=== PATIENT | female | born 1995 | race Caucasian/White ===

== ENCOUNTER 2018-09-04 16:29 | Inpatient (IN) ==
[~2018-09-04 16:29] MED LIST: AMIDATE ONE; QUELICIN ONE
[2018-09-04] MEDS ORDERED: ATIVAN IV ONE (16:39)
--- NOTE | 2018-09-04 16:43 | Diag Imaging Result Doc PS360 ---
EXAM: CHEST-1 VIEW 09/04/2018 HISTORY: INTUBATION TECHNIQUE: AP portable chest at 1645 COMMENT: There is considerable motion artifact. There is no visible endotracheal tube. There is no definite abnormality. The heart size is within normal limits. IMPRESSION: Technically suboptimal radiograph. No gross abnormality. Electronically signed by Taj Zaragoza 09/04/2018 4:41 PM
[2018-09-04 16:44] LABS: BE -4.8 mmoll (-3.0-3.0); BLOOD TYPE ARTERIAL; HCO3-(ACT) 21.2 mmoll (20.0-26.0); METHB 1.4 % (0.0-1.5); O2(CT) 17.7 mL/dL (15.0-23.0); O2HB 96.8 % (95.0-99.0); PCO2(98.6) 44 mmHg (35-45); PO2(98.6) 230 mmHg (60-100); SAMPLE BLOOD; THB 12.6 g/dL (11.5-17.4)
[2018-09-04 16:47] LABS: MODALITY VENTIMASK
[2018-09-04 16:48] LABS: ALLEN TEST NO
[2018-09-04] MEDS ORDERED: SODIUM BICARBONATE 8.4% IV ONE (16:55)
[2018-09-04 17:03] LABS: AGAP 18; ALKALINE PHOSPHATASE 79 U/L (32-104); BUN 11 mg/dL (8-22); CALCIUM 8.6 mg/dL (8.8-10.2); CHLORIDE 103 mmol/L (98-107); COSMO 277; CREATININE 0.8 mg/dL (0.5-0.9); ESTIMATED GFR > 60; GLUCOSE 169 mg/dL (70-104); GOT 25 U/L (10-30); GPT 23 U/L (10-36); POTASSIUM 4.5 mmol/L (3.5-5.1); SODIUM 137 mmol/L (136-145); TCO2 16 mmol/L (25-35); TOTAL PROTEIN 6.4 g/dL (6.3-8.3)
[2018-09-04 17:10] LABS: BASO# 0.03 X1000 (0.0-0.2); BASO% 0.5 % (0.0-0.8); EOS# 0.17 X1000 (0.0-0.7); EOS% 2.8 % (0.0-10.0); HEMATOCRIT 36.6 % (37.0-47.0); HEMOGLOBIN 12.1 g/dL (12.0-16.0); IMM GRAN# 0.05 X1000 (0.0-0.04); IMM GRAN% 0.8 % (0.0-0.5); LYMPH# 2.61 X1000 (1.2-3.4); LYMPH% 43.6 % (20.5-51.1); MCH 31.8 PG (27-31); MCHC 33.1 g/dL (33-37); MCV 96.3 FL (81-99); MONO# 0.17 X1000 (0.11-0.59); MONO% 2.8 % (1.7-9.3); MPV 9.5 FL (7.4-10.4); NEUT# 2.96 X1000 (1.4-6.5); NEUT% 49.5 % (42.2-75.2); PLT 280 X1000 (130-400); RDW 13.4 % (11.5-14.5); WBC 5.99 X1000 (4.8-10.8)
[2018-09-04 17:37] LABS: COLOR YELLOW; URINE RBC 20-40 /HPF (<10); URINE SOURCE CLEAN CATCH
[2018-09-04 17:38] LABS: BILIRUBIN URINE NEGATIVE (NEGATIVE); BLOOD URINE 3+ (NEGATIVE); CLARITY SLIGHTLY HAZY (CLEAR); GLUCOSE URINE NEGATIVE (NEGATIVE); KETONE URINE 1+(Small) mg/dL (NEGATIVE); LEUKOCYTES URINE NEGATIVE (NEGATIVE); NITRITE URINE NEGATIVE (NEGATIVE); UROBILINOGEN URINE NORMAL
[2018-09-04 18:10] LABS: UR AMPHETAMINES QUAL PRESUMPTIVE POSITIVE (NONE DETECT); UR BARBITUATES QUAL NONE DETECTED (NONE DETECT); UR BENZODIAZEPIN QUAL NONE DETECTED (NONE DETECT); UR CANNABINOIDS QUAL PRESUMPTIVE POSITIVE (NONE DETECT); UR COCAINE QUAL NONE DETECTED (NONE DETECT); UR METHADONE QUAL NONE DETECTED (NONE DETECT); UR METHAMPHETAMINE QUAL NONE DETECTED (NONE DETECT); UR OPIATES QUAL NONE DETECTED (NONE DETECT); UR OXYCODONE QUAL NONE DETECTED (NONE DETECT); UR PCP QUAL NONE DETECTED (NONE DETECT); UR PROPOXYPHENE QUAL NONE DETECTED (NONE DETECT); UR TCA QUAL NONE DETECTED (NONE DETECT)
[2018-09-04] MEDS ORDERED: LR 2,000 ML IV ONE (18:12)
[2018-09-04 18:35] LABS: INR 0.93; PROTIME 12.9 Seconds (11.0-16.0)
[2018-09-04 18:36] LABS: PTT 25.2 Seconds (22.3-41.8)
[2018-09-04] MEDS ORDERED: ZOFRAN IV PRN (18:44)
[2018-09-04] MEDS ORDERED: ATIVAN IV PRN ×2 (18:47→18:56)
[2018-09-04] MEDS ORDERED: SODIUM CHLORIDE 0.9% INJ SCH (19:00)
[2018-09-04] MEDS ORDERED: PROTONIX IV SCH (19:00)
--- NOTE | 2018-09-04 19:08 | PROVIDER DOCUMENTATION ---
This chart was entered by Halima Porter Scribe, acting as scribe for Fran Luu MD. HPI-Critical Care - General Chief Complaint: Unresponsive Stated Complaint: Unresponsive/Seizures Time Seen by Provider: 09/04/18 16:19 Patient arrived via EMS?: Yes Source: EMS Allergies/Adverse Reactions: Allergies Allergy/AdvReac Type Severity Reaction Status Date / Time Unable to Assess Allergy Verified 09/04/18 16:10 Home Medications: Home Medication List Medication Instructions Recorded Confirmed Last Taken Type Unobtainable [Home Meds 09/04/18 09/04/18 Unknown History Unobtainable] - History of Present Illness-Critical Care Nature of Presenting Problem: 23yof presents to ED by EMS cc per EMS un responsive and multiple seizures that last 1 1/2 minutes and then start again about 2 minutes later. EMS reports pt had a miscarriage 2 weeks ago and has had no vaginal bleeding for last 4 days. Pt is unresponsive to verbal , responsive to pain and has unpurposeful movement. Pt has hx of HTN and anxiety. Upon exam Afebrile, no needle tracks, blood pressure is 110/83, blood sugar is 231 and heart rate is 138. Review of Systems - Adult - REVIEW OF SYSTEMS - ADULT ROS:: unobtainable per condition Constitutional: reports: no symptoms reported Eyes: reports: no symptoms reported Ears, Nose, Mouth & Throat: reports: no symptoms reported Cardiovascular: reports: no symptoms reported Respiratory: reports: no symptoms reported Gastrointestinal: reports: no symptoms reported Genitourinary: reports: no symptoms reported Musculoskeletal: reports: no symptoms reported Integumentary: reports: no symptoms reported Neurological: reports: no symptoms reported Psychiatric: reports: no symptoms reported Endocrine: reports: no symptoms reported Hematologic/Lymphatic: reports: no symptoms reported Allergic/Immunologic: reports: no symptoms reported All Other Systems: Reviewed and Negative Past History - Adult - PAST MEDICAL HISTORY-ADULT Review of Records: reports: Nursing Assessment Review, Medications Reviewed, Social history reviewed & non-contributory. Major Childhood Illnesses: reports: denies history Cardiovascular: reports: denies history Respiratory: reports: denies history Gastrointestinal: reports: denies history Obstetrical/Gynecological: reports: denies history Genitourinary: reports: denies history Musculoskeletal: reports: denies history Neurological: reports: denies history Endocrine/Immune: reports: denies history Other Conditions: reports: denies history - IMMUNIZATION STATUS Childhood Immunizations: See Nurse Assessment Flu Vaccine: See Nurse Assessment - FAMILY HISTORY Family History: reviewed, not pertinent Physical Exam-General - PHYSICAL EXAM-ADULT Initial Vital Signs Reviewed: Yes - CONSTITUTIONAL General Appearance: other (unpurposeful movement) - EYES Eyes: other (pupils dilated 1cm, equal but unresponsive) - RESPIRATORY Respiratory: lungs clear, normal breath sounds, other (sounds congested only when she coughs). negative: crackles, rales, rhonchi - CARDIOVASCULAR Cardiovascular: tachycardia. negative: regular rate, rhythm, bradycardia - GASTROINTESTINAL (ABDOMEN) Abdominal Exam: normal bowel sounds, non tender, soft. negative: rigid, rebound, tenderness - LYMPHATIC Lymphatic: no adenopathy. negative: striations - SKIN Integumentary: normal color, warm/dry. negative: jaundice Progress - PLAN OF CARE/RESULTS Progress/Plan/Lab Results: Vital Signs - 8 hr 09/04/18 16:00 09/04/18 16:15 09/04/18 16:25 Temperature 97 F L Pulse Rate 133 H Respiratory Rate 18 Blood Pressure 110/83 O2 Sat by Pulse Oximetry 93 L 92 L 98 09/04/18 18:00 Temperature Pulse Rate 136 H Respiratory Rate 26 H Blood Pressure 115/76 O2 Sat by Pulse Oximetry 98 Laboratory Results - last 24 hr 09/04/18 09/04/18 09/04/18 16:09 16:09 16:09 WBC 5.99 RBC 3.80 L Hgb 12.1 Hct 36.6 L MCV 96.3 MCH 31.8 H MCHC 33.1 RDW Std Deviation 13.4 Plt Count 280 MPV 9.5 Immature Gran % (Auto) 0.8 H Neut % (Auto) 49.5 Lymph % (Auto) 43.6 Collier % (Auto) 2.8 Eos % (Auto) 2.8 Baso % (Auto) 0.5 Immature Gran # (Auto) 0.05 H Neut # (Auto) 2.96 Lymph # (Auto) 2.61 Collier # (Auto) 0.17 Eos # (Auto) 0.17 Baso # (Auto) 0.03 PT INR PTT (Actin FS) Specimen Type Sample Site pH pCO2 pO2 HCO3 Base Excess Oxyhemoglobin ABG O2 Sat (Calculated) ABG O2 Saturation ABG Carboxyhemoglobin ABG Methemoglobin Hiram Test A-a O2 Difference Total Hemoglobin Lactate Liter Flow Blood Gas Modality FiO2 % Sodium 137 Potassium 4.5 Chloride 103 Carbon Dioxide 16 L Anion Gap 18 BUN 11 Creatinine 0.8 Estimated GFR/1.73 m2 > 60 BUN/Creatinine Ratio 14 Glucose 169 H POC Glucose Calculated Osmolality 277 Calcium 8.6 L Magnesium 1.9 Total Bilirubin 0.20 AST 25 ALT 23 Alkaline Phosphatase 79 Troponin T Total Protein 6.4 Albumin 4.0 Globulin 2.0 Albumin/Globulin Ratio 2.0 Plasma Lactate Free T4 Urine Source Urine Color Urine Clarity Urine pH Ur Specific [place] Urine Protein Urine Ketones Urine Blood Urine Nitrite Urine Bilirubin Urine Urobilinogen Urine Microscopic RBC Urine WBC Urine Glucose Urine Test Urine Opiates Screen Ur Oxycodone Screen Urine Methadone Screen U Propoxyphene Qual Acetaminophen Ur Barbituates Screen Ur Tricyclics Screen Ur Phencyclidine Scrn Ur Amphetamines Screen U Methamphetamines Scrn U Benzodiazepines Scrn Urine Cocaine Screen U Cannabinoids Screen Acetone Level 09/04/18 09/04/18 09/04/18 16:09 16:09 16:09 WBC RBC Hgb Hct MCV MCH MCHC RDW Std Deviation Plt Count MPV Immature Gran % (Auto) Neut % (Auto) Lymph % (Auto) Collier % (Auto) Eos % (Auto) Baso % (Auto) Immature Gran # (Auto) Neut # (Auto) Lymph # (Auto) Collier # (Auto) Eos # (Auto) Baso # (Auto) PT INR PTT (Actin FS) Specimen Type Sample Site pH pCO2 pO2 HCO3 Base Excess Oxyhemoglobin ABG O2 Sat (Calculated) ABG O2 Saturation ABG Carboxyhemoglobin ABG Methemoglobin Hiram Test A-a O2 Difference Total Hemoglobin Lactate Liter Flow Blood Gas Modality FiO2 % Sodium Potassium Chloride Carbon Dioxide Anion Gap BUN Creatinine Estimated GFR/1.73 m2 BUN/Creatinine Ratio Glucose POC Glucose Calculated Osmolality Calcium Magnesium Total Bilirubin AST ALT Alkaline Phosphatase Troponin T < 0.010 Total Protein Albumin Globulin Albumin/Globulin Ratio Plasma Lactate Free T4 0.75 L Urine Source Urine Color Urine Clarity Urine pH Ur Specific [place] Urine Protein Urine Ketones Urine Blood Urine Nitrite Urine Bilirubin Urine Urobilinogen Urine Microscopic RBC Urine WBC Urine Glucose Urine Test Urine Opiates Screen Ur Oxycodone Screen Urine Methadone Screen U Propoxyphene Qual Acetaminophen Ur Barbituates Screen Ur Tricyclics Screen Ur Phencyclidine Scrn Ur Amphetamines Screen U Methamphetamines Scrn U Benzodiazepines Scrn Urine Cocaine Screen U Cannabinoids Screen Acetone Level NEGATIVE 09/04/18 09/04/18 09/04/18 16:09 16:09 16:09 WBC RBC Hgb Hct MCV MCH MCHC RDW Std Deviation Plt Count MPV Immature Gran % (Auto) Neut % (Auto) Lymph % (Auto) Collier % (Auto) Eos % (Auto) Baso % (Auto) Immature Gran # (Auto) Neut # (Auto) Lymph # (Auto) [place]lier # (Auto) Eos # (Auto) Baso # (Auto) PT INR PTT (Actin FS) Specimen Type Sample Site pH pCO2 pO2 HCO3 Base Excess Oxyhemoglobin ABG O2 Sat (Calculated) ABG O2 Saturation ABG Carboxyhemoglobin ABG Methemoglobin Hiram Test A-a O2 Difference Total Hemoglobin Lactate Liter Flow Blood Gas Modality FiO2 % Sodium Potassium Chloride Carbon Dioxide Anion Gap BUN Creatinine Estimated GFR/1.73 m2 BUN/Creatinine Ratio Glucose POC Glucose Calculated Osmolality Calcium Magnesium Total Bilirubin AST ALT Alkaline Phosphatase Troponin T Total Protein Albumin Globulin Albumin/Globulin Ratio Plasma Lactate Free T4 Urine Source Urine Color Urine Clarity Urine pH Ur Specific [place] Urine Protein Urine Ketones Urine Blood Urine Nitrite Urine Bilirubin Urine Urobilinogen Urine Microscopic RBC Urine WBC Urine Glucose Urine Test NEGATIVE Urine Opiates Screen NONE DETECTED Ur Oxycodone Screen NONE DETECTED Urine Methadone Screen NONE DETECTED U Propoxyphene Qual NONE DETECTED Acetaminophen < 1.2 L Ur Barbituates Screen NONE DETECTED Ur Tricyclics Screen NONE DETECTED Ur Phencyclidine Scrn NONE DETECTED Ur Amphetamines Screen PRESUMPTIVE POSITIVE A U Methamphetamines Scrn NONE DETECTED U Benzodiazepines Scrn NONE DETECTED Urine Cocaine Screen NONE DETECTED U Cannabinoids Screen PRESUMPTIVE POSITIVE A Acetone Level 09/04/18 09/04/18 09/04/18 16:09 16:09 16:25 WBC RBC Hgb Hct MCV MCH MCHC RDW Std Deviation Plt Count MPV Immature Gran % (Auto) Neut % (Auto) Lymph % (Auto) [place] % (Auto) Eos % (Auto) Baso % (Auto) Immature Gran # (Auto) Neut # (Auto) Lymph # (Auto) [place] # (Auto) Eos # (Auto) Baso # (Auto) PT 12.9 INR 0.93 PTT (Actin FS) 25.2 Specimen Type Sample Site pH pCO2 pO2 HCO3 Base Excess Oxyhemoglobin ABG O2 Sat (Calculated) ABG O2 Saturation ABG Carboxyhemoglobin ABG Methemoglobin Hiram Test A-a O2 Difference Total Hemoglobin Lactate Liter Flow Blood Gas Modality FiO2 % Sodium Potassium Chloride Carbon Dioxide Anion Gap BUN Creatinine Estimated GFR/1.73 m2 BUN/Creatinine Ratio Glucose POC Glucose Calculated Osmolality Calcium Magnesium Total Bilirubin AST ALT Alkaline Phosphatase Troponin T Total Protein Albumin Globulin Albumin/Globulin Ratio Plasma Lactate 5.4 H Free T4 Urine Source CLEAN CATCH Urine Color YELLOW Urine Clarity SLIGHTLY HAZY A Urine pH 5.0 Ur Specific [place] 1.030 Urine Protein 3+(500 mg/dL) A Urine Ketones 1+(Small) A Urine Blood 3+ A Urine Nitrite NEGATIVE Urine Bilirubin NEGATIVE Urine Urobilinogen NORMAL Urine Microscopic RBC 20-40 A Urine WBC NEGATIVE Urine Glucose NEGATIVE Urine Test Urine Opiates Screen Ur Oxycodone Screen Urine Methadone Screen U Propoxyphene Qual Acetaminophen Ur Barbituates Screen Ur Tricyclics Screen Ur Phencyclidine Scrn Ur Amphetamines Screen U Methamphetamines Scrn U Benzodiazepines Scrn Urine Cocaine Screen U Cannabinoids Screen Acetone Level 09/04/18 09/04/18 16:27 16:28 WBC RBC Hgb Hct MCV MCH MCHC RDW Std Deviation Plt Count MPV Immature Gran % (Auto) Neut % (Auto) Lymph % (Auto) [place] % (Auto) Eos % (Auto) Baso % (Auto) Immature Gran # (Auto) Neut # (Auto) Lymph # (Auto) Collier # (Auto) Eos # (Auto) Baso # (Auto) PT INR PTT (Actin FS) Specimen Type ARTERIAL Sample Site L BRACHIAL pH 7.30 L pCO2 44 pO2 230 H HCO3 21.2 Base Excess -4.8 L Oxyhemoglobin 96.8 ABG O2 Sat (Calculated) 17.7 ABG O2 Saturation 100.0 ABG Carboxyhemoglobin 1.80 ABG Methemoglobin 1.4 Hiram Test NO A-a O2 Difference 72.0 Total Hemoglobin 12.6 Lactate 3.30 H Liter Flow 15.0 Blood Gas Modality VENT[place] FiO2 % 50.0 Sodium Potassium Chloride Carbon Dioxide Anion Gap BUN Creatinine Estimated GFR/1.73 m2 BUN/Creatinine Ratio Glucose POC Glucose 142 H Calculated Osmolality Calcium Magnesium Total Bilirubin AST ALT Alkaline Phosphatase Troponin T Total Protein Albumin Globulin Albumin/Globulin Ratio Plasma Lactate Free T4 Urine Source Urine Color Urine Clarity Urine pH Ur Specific [place] Urine Protein Urine Ketones Urine Blood Urine Nitrite Urine Bilirubin Urine Urobilinogen Urine Microscopic RBC Urine WBC Urine Glucose Urine Test Urine Opiates Screen Ur Oxycodone Screen Urine Methadone Screen U Propoxyphene Qual Acetaminophen Ur Barbituates Screen Ur Tricyclics Screen Ur Phencyclidine Scrn Ur Amphetamines Screen U Methamphetamines Scrn U Benzodiazepines Scrn Urine Cocaine Screen U Cannabinoids Screen Acetone Level Orders Category Date Time Status Admit - [facility] Routine AdmDCTranf 09/04/18 18:45 Active Activity - Strict Bedrest ORDERED Care 09/04/18 18:44 Active Cardiac Monitoring DIRECTED Care 09/04/18 16:31 Active IV Insertion ORDERED Care 09/04/18 18:08 Completed Intake and Output-Strict ORDERED Care 09/04/18 18:45 Active Neurological Check ORDERED Care 09/04/18 18:47 Active Notify MD of + Sepsis Screen NOW Care 09/04/18 18:08 Active Notify Physician As Ordered Care 09/04/18 18:08 Active Saline Loc NOW Care 09/04/18 16:31 Active Vital Signs Order Q1H Care 09/04/18 18:45 Active Z-Document. for Tele Applied ORDERED Care 09/04/18 18:45 Active NPO Diet 09/04/18 18:[address] HEAD W/O CONTRAST [CT] Stat Exams 09/04/18 17:48 Ordered cxr [CHEST-1 VIEW] [RAD] Stat Exams 09/04/18 16:07 Completed ABG [RESP] Routine Lab 09/04/18 16:28 Completed ACETAMINOPHEN [TDM] Stat Lab 09/04/18 16:09 Completed ACETONE SERUM [CHEM] Stat Lab 09/04/18 16:09 Completed BLOOD CULTURE [BLDCUL] Stat Lab 09/04/18 16:25 Ordered CBC WITH DIFF [HEME] Routine Lab 09/05/18 06:00 Ordered CBC WITH ELECTRONIC DIFF [HEME] Stat Lab 09/04/18 16:09 Completed CK PROFILE [SP CHEM] Stat Lab 09/04/18 18:09 Ordered COMPREHENSIVE METABOLIC PANEL [CHEM] Routine Lab 09/05/18 06:00 Uncollected COMPREHENSIVE METABOLIC PANEL [CHEM] Stat Lab 09/04/18 16:09 Completed FREE T4 Stat Lab 09/04/18 16:09 Completed LACTATE, PLASMA [CHEM] Q3H Lab 09/04/18 19:25 Ordered LACTATE, PLASMA [CHEM] Stat Lab 09/04/18 16:25 Completed MAGNESIUM [CHEM] Stat Lab 09/04/18 16:09 Completed TEST-URINE [PREG] Stat Lab 09/04/18 16:09 Completed PROTIME WITH INR [COAG] Stat Lab 09/04/18 16:09 Completed PTT [COAG] Stat Lab 09/04/18 16:09 Completed TROPONIN T Stat Lab 09/04/18 16:09 Completed TROPONIN T Stat Lab 09/04/18 18:[address] W/POSS RFLX CULT [URINALYSIS] Stat Lab 09/04/18 16:09 Completed URINE CULTURE [RM] Routine Lab 09/04/18 18:57 Ordered URINE DRUG SCREEN PL Stat Lab 09/04/18 16:09 Completed Etomidate [Amidate] Med 09/04/18 15:57 Discontinued 20 mg .ROUTE .STK-MED ONE Lactated Ringers Inj [Lr] 2,000 ml Med 09/04/18 18:12 Active IV 999 mls/hr Lorazepam [Ativan] Med 09/04/18 16:39 Discontinued 1 mg IV NOW ONE Lorazepam [Ativan] Med 09/04/18 18:56 Active 1 mg IV Q2H PRN PRN Lorazepam [Ativan] Med 09/04/18 18:47 Discontinued 1 mg IV Q4H PRN PRN Ondansetron [Zofran] Med 09/04/18 18:44 Active 4 mg IV Q4H PRN PRN Pantoprazole [Protonix] Med 09/04/18 19:00 Active 40 mg IV Q24H Sodium Bicarbonate 8.4% Med 09/04/18 16:55 Discontinued 25 meq IV NOW ONE Sodium Chloride 0.9% Med 09/04/18 19:00 Active 10 ml INJ DIRECTED Succinylcholine [Quelicin] Med 09/04/18 15:57 Discontinued 200 mg .ROUTE .STK-MED ONE Oxygen Device Stat Oth 09/04/18 18:08 Active Telemetry [OM.EQ] Routine Oth 09/04/18 18:45 Active EKG [EKG] Stat Ther 09/04/18 16:31 Ordered Transfer/Admit Order [TRANSFER] Routine Transfer 09/04/18 18:55 Ordered 16:08...Minor catheter placed 17:36...Fiance is here and states pt is from [place] and has been out of her Cl onzepam for a week. He reports they went to [place], [place] on Thursday to get the refills but the dr send the wrong meds to pharmacy and they are trying to get it fixed. He also states pt smokes a Jenny' vape pen and smokes marijuana, daily, but he doesn't believe she had any today. Result Diagrams: 09/04/18 16:09 09/04/18 16:09 - REASSESSMENT Reassessment #1 Time Reassessed: 16:40 Status: unchanged (COMBATIVE, NON-PURPOSEFUL THRASHING ALL 4 EXTREMEITIES ,EQUAL HUGE PUPILS OF 1CM EACH) Reassessment #2 Time Reassessed: 17:56 Status: improving (STILL THRASHING AND AGITATED, PUPILS STILL 1` CM EQUAL, SL MORE ALERT, SEEMS TO RECOGNIZE FIANCE AND MOTHER IN LAW FIGURE. UNABLE TO FOLLOW OR ANSWER VERBAL COMMANDS YET.) Reassessment #3 Time Reassessed: 19:02 Status: improving (PT MUCH MORE ORIENTED BUT STILL VERY CONFUSED, ABLE TO ASK A FEW QUESTIONS, NOW WITH PURPOSEFUL MOVEMENTS, I HAVE REMOVED SOFT RESTRAINTS. FAMILY AT BEDSIDE.NOTE UDS + AMPHETAMINE AND THC.) - XRAY 1 XRAY: Bilateral XRAY Study: Chest Impression: See EMR Report (IMPRESSION: Technically suboptimal radiograph. No gross abnormality. Electronically signed by Taj Zaragoza 09/04/2018 4:41 PM) - CONSULTS/PCP/HOSPITALIST Notification #1 *Consult/PCP/Hospitalist*: DR VALDERRAMA Time Discussed: 18:04 Consult Disposition: Admit (ICU INITALLY.) Departure - Departure Date of Disposition Decision: 09/04/18 Time of Disposition Decision: 19:06 DIAGNOSIS: Seizures, generalized convulsive Disposition: ADMITTED INPATIENT 09 Certified Medical Emergency: Emergent Condition: Fair - Critical Care Note This patient required my direct & personal management of CC.: Yes Total Time (mins): 75 Critical Care Statement: This patient required my direct personal management to treat or rule out processes, the absence of which, could potentiallly result in sudden, clinically significant life or limb threatening deterioration. Attestation - Physician/ JAZMIN Attestation Patient care was provided by Advanced Practice Provider:: No The physician spent face to face time with patient:: Yes Advanced Practice Provider documentation review:: Supervising physician onsite and consulted in the evaluation and care of this patient. The physician did have a face to face encounter with the patient. This chart was documented by the indicated scribe, (Halima Porter, Erik) and accurately reflects the services I performed and decisions made by me, Fran Luu MD, as attested by the provider's signature.
[2018-09-04] MEDS ORDERED: VANCOMYCIN IV PER PHARMACY MISC SCH (19:15)
[2018-09-04] MEDS ORDERED: KEPPRA 500 MG in NS 100 ML IV ONE (19:26)
[2018-09-04] MEDS: ZOSYN 3.375 GM in NS 50 ML IV SCH (20:43)
[2018-09-04 21:07] LABS: CK INDEX 1.3 (0.0-2.5); CK-MB 2.88 ng/mL (0.0-5.0)
--- NOTE | 2018-09-04 21:43 | Diag Imaging Result Doc PS360 ---
EXAM: CT HEAD W/O CONTRAST 09/04/2018 HISTORY: AMS TECHNIQUE: This exam was performed using automated exposure control, adjustment of mA or kV according to patient size, and/or use of iterative reconstruction technique. COMMENT: There is no evidence of mass effect, bleed, or abnormal extra-axial fluid collection. The calvarium is intact. The visualized paranasal sinuses are clear. IMPRESSION: No evidence of acute intracranial disease. Electronically signed by Taj Zaragoza 09/04/2018 9:40 PM
[2018-09-04] MEDS ORDERED: VANCOMYCIN 1 GM/NS 1 GM/250 ML IVPB IV ONE (22:00)
[2018-09-04] MEDS ORDERED: LEVOPHED 8 MG in D5 1/2 NS 250 ML IV SCH (22:45)
[2018-09-04] MEDS ORDERED: VANCOMYCIN 500 MG/NS 500 MG/100 ML IVPB IV ONE ×2 (23:00)
[2018-09-04] MEDS: NS 1,000 ML IV SCH (23:01)
--- NOTE | 2018-09-05 00:38 | HISTORY AND PHYSICAL ---
CHIEF COMPLAINT: Unresponsive. HISTORY OF PRESENT ILLNESS: This is a 23-year-old female with an unknown history who presents to the emergency room via EMS. According to the ER chart, EMS reported the patient had been out of Klonopin for 3 days and that she is 2 weeks post a miscarriage. She was moving all extremities, but she did not follow any commands on arrival. EMS reported the patient had multiple seizures lasting a minute and a half and she had these episodes about every 2 minutes. The patient was responsive to pain per EMS report. Reportedly, the ER physician spoke with the patient's fiance who stated that she had been out of her Klonopin for a week. There was a mixup on the prescription and she was not able to get it. Evidently, this is prescribed in [place]. He did state the patient smoked a Juul vape pen and smoked marijuana. PAST MEDICAL HISTORY: As stated above. PAST SURGICAL HISTORY: Unknown. SOCIAL HISTORY: As stated above. She smokes, uses a vape and smokes marijuana. ALLERGIES: Unknown. HOME MEDICATIONS: Unobtainable. REVIEW OF SYSTEMS: Unable to obtain. PHYSICAL EXAMINATION: GENERAL: This is a 23-year-old female who is lying in the stretcher with thrashing movements. EYES: Pupils are dilated. Sclerae are anicteric. HEENT: Head is normocephalic, atraumatic. Mucous membranes are dry. NECK: Supple with trachea midline. CARDIOVASCULAR: Regular rate and rhythm. She is tachycardic. S1 and S2 are appreciated. She has no murmur. She does have peripheral pulses x4 extremities. PULMONARY: She has rhonchi that clear to cough. Chest rises and falls symmetrically. GASTROINTESTINAL: Abdomen is soft with bowel sounds in all 4 quadrants. SKIN: Warm and dry with good turgor. LABS: WBC is 5.9 with hemoglobin 12.1, hematocrit 36.6, and platelets of 280,000. INR 0.93. Sodium 137, potassium 4.5, BUN 11, creatinine 0.8 with a glucose of 169. She has a lactate of 5.4. She has a free T4 of 0.75. Urine drug screen is presumptive positive for amphetamines and cannabinoids. Blood cultures and urine cultures are pending. CT of the head is pending. ASSESSMENT AND PLAN: 1. Altered mental status. 2. Seizures. They could be secondary to Klonopin withdrawal. 3. Recent miscarriage. Dictated by PEARL Singer for Patricio Lee MD cc: PEARL Singer MD
[2018-09-05] MEDS: ZOSYN 3.375 GM in NS 50 ML IV SCH ×2 (02:02→08:29)
[2018-09-05 06:53] LABS: BASO# 0.02 X1000 (0.0-0.2); BASO% 0.2 % (0.0-0.8); HEMATOCRIT 30.7 % (37.0-47.0); HEMOGLOBIN 10.1 g/dL (12.0-16.0); IMM GRAN# 0.02 X1000 (0.0-0.04); IMM GRAN% 0.2 % (0.0-0.5); LYMPH# 2.07 X1000 (1.2-3.4); LYMPH% 17.4 % (20.5-51.1); MCH 31.1 PG (27-31); MCHC 32.9 g/dL (33-37); MCV 94.5 FL (81-99); MONO# 1.09 X1000 (0.11-0.59); MONO% 9.2 % (1.7-9.3); MPV 9.5 FL (7.4-10.4); NEUT# 8.71 X1000 (1.4-6.5); PLT 196 X1000 (130-400); RBC 3.25 XMIL (4.2-5.4); RDW 13.8 % (11.5-14.5); WBC 11.91 X1000 (4.8-10.8)
[2018-09-05 07:20] LABS: AGAP 12; ALBUMIN 3.5 g/dL (3.5-5.0); ALKALINE PHOSPHATASE 60 U/L (32-104); BUN 8 mg/dL (8-22); CALCIUM 8.3 mg/dL (8.8-10.2); CHLORIDE 105 mmol/L (98-107); COSMO 277; CREATININE 0.4 mg/dL (0.5-0.9); ESTIMATED GFR > 60; GLUCOSE 78 mg/dL (70-104); GOT 20 U/L (10-30); GPT 18 U/L (10-36); POTASSIUM 3.8 mmol/L (3.5-5.1); SODIUM 140 mmol/L (136-145); TCO2 23 mmol/L (25-35); TOTAL PROTEIN 5.3 g/dL (6.3-8.3)
[2018-09-05] MEDS: NS 1,000 ML IV SCH (10:35)
[2018-09-05] MEDS ORDERED: MOTRIN PO ONE (10:39)
[2018-09-05 10:54] VITALS: BP 92/69
[2018-09-05] MEDS ORDERED: VANCOMYCIN 1 GM/NS 1 GM/250 ML IVPB IV SCH (11:00)
[2018-09-05] MEDS ORDERED: VANCOMYCIN 1,500 MG in NS 250 ML IV SCH (16:00)
--- NOTE | 2018-09-06 01:57 | HISTORY AND PHYSICAL ---
ADDENDUM: Patient seen and examined by myself in the ER along with the nurse practitioner. Patient currently is confused, disoriented. She is thrashing about at times. She has altered mental status. We will admit to the hospital, place her on telemetry. Certainly this could be more related to a Klonopin withdrawal although this is not all that I would expect as some of this is more abnormal behavior as opposed to seizure-type behavior. Please see full note. cc: Patricio Lee MD
--- NOTE | 2018-09-06 05:26 | DISCHARGE SUMMARY ---
ADMISSION DATE: 09/04/2018 DISCHARGE DATE: 09/05/2018 DISCHARGE DIAGNOSIS: 1. Altered mental status, resolved. 2. Tetrahydrocannabinol positive on urine drug screen. 3. Seizure secondary to Klonopin withdrawal. 4. Klonopin withdrawal. 5. Chronic anxiety. 6. Posttraumatic stress disorder. 7. Others. CONSULTATIONS: None. PROCEDURES: None. BRIEF HOSPITAL COURSE: Patient was admitted to the hospital secondary to altered mental status. It is reported that she has been out of her Klonopin approximately 2 to 3 days. She has does note that she uses amphetamines occasionally and marijuana. States that she had not taken anything else. Thankfully, she had an uneventful hospital course. She was admitted to the hospital, placed on seizure protocol, oxygen. On discharge, she is awake, alert, oriented. She is in no distress. She is able to ambulate without any difficulty. She is able to eat and drink without any difficulty. DISPOSITION: Patient will be discharged home. Discussed with her the importance of lifestyle modifications. Discussed that she needs to continue on Klonopin and a tapering dose has been written for her. TIME SPENT: Greater than 30 minutes was spent in total care. cc: Patricio Lee MD
== END 2018-09-05 12:27 | disposition home or self-care (01) | DRG 101 ==
LOC: P.ED 16:29 → P.ICU 21:02
PROVIDERS: ATTEND Family Medicine
CPT/HCPCS: 51702; 70450; 71010; 71045; 80053; 80104; 80301; 80305; 80307; 80324; 80329; 81001; 81025; 82003; 82009; 82550; 82553; 82805; 82948; 83605; 83735; 84439; 84484; 85025; 85610; 85730; 87040; 87088; 93005; 96365; 96367; 96375; 99285; 99291; A9270; C9113; G0431; G0434; G0477; G0480; G6039; J0330; J1953; J2060; J2543; J3370; J7030; J7120; S0164; XXXXX